=== PATIENT | female | born 1955 | race Caucasian/White ===

== ENCOUNTER 2024-03-31 15:05 | Emergency (ER) | payer MEDICARE ==
[~2024-03-31] VITALS: Ht 162.6 cm; Wt 105.7 kg
[2024-03-31 15:30] VITALS: PULSE 74; RESP 18; TEMP 97.8; O2SAT 97
[2024-03-31] MEDS ORDERED: KETOROLAC TROMETHAMINE 30 MG/ML VIAL ONE (16:12)
[2024-03-31] MEDS ORDERED: DEXAMETHASONE SOD PHOS 10 MG/1 ML VIAL ONE (16:12)
[2024-03-31] MEDS: KETOROLAC TROMETHAMINE 30 MG/ML VIAL IM STA (16:17)
[2024-03-31] MEDS: DEXAMETHASONE SOD PHOS 10 MG/1 ML VIAL IV ONE (16:17)
== END 2024-03-31 16:55 | disposition home or self-care (01) ==
LOC: ER 16:21
DX: M54.50 Low back pain, unspecified (principal); I10 Essential (primary) hypertension; E11.9 Type 2 diabetes mellitus without complications; E78.5 Hyperlipidemia, unspecified; Z95.4 Presence of other heart-valve replacement
CPT/HCPCS: 99283; J1100; J1885